=== PATIENT | female | born 1970 | race Caucasian/White ===

== ENCOUNTER 2022-09-29 09:38 | Outpatient (CLI) | payer MEDICARE | END 2022-09-29 09:39 | disposition home or self-care (01) | LOC: MADRAD 09:38 | PROVIDERS: ATTEND Internal Medicine | DX: J44.9 Chronic obstructive pulmonary disease, unspecified (principal); J96.11 Chronic respiratory failure with hypoxia; I26.99 Other pulmonary embolism without acute cor pulmonale; F17.228 Nicotine dependence, chewing tobacco, with other nicotine-induced disorders; I51.7 Cardiomegaly; I27.20 Pulmonary hypertension, unspecified | CPT/HCPCS: 71046 ==

== ENCOUNTER 2022-12-12 23:50 | Emergency (ER) | payer MEDICARE ==
[~2022-12-12 23:50] MED LIST: EPINEPHrine 1 MG/10 ML Abboject SYRINGE ONE; Iopamidol 370 76% 200 ML VIAL ONE; Sodium Bicarb 50 MEQ/50 ML Abboject 8.4% SYRINGE ONE; Sodium Chloride 0.9% 500 ML BAG ONE
[2022-12-13] MEDS ORDERED: Magnesium 2 GM/50 ML BAG (IN WATER) ONE (00:18)
[2022-12-13 00:24] LABS: #Basophils 0.1 thou/uL (0.0-0.2); #Monocytes 1.3 thou/uL (0.11-0.59); #Neutrophils 10.5 thou/uL (1.40-6.50); %Basophils 0.5 % (0.0-1.0); %Eosinophils 0.1 % (0.0-10.0); %Monocytes 8.1 % (0.0-10.0); %Neutrophils 66.3 % (42.0-75.0); Hemoglobin 15.3 g/dL (12.0-16.0); Mean Corpuscular HGB CONC 31.9 g/dL (32.0-36.0); Mean Corpuscular Hemoglobin 28.7 pg (27.0-31.0); Mean Corpuscular Volume 90.1 fl (78.0-98.0); Platelet Count 181 10x3/uL (130-400); RBC Distribution Width 13.6 % (11.5-14.5); Red Blood Cell (RBC) Count 5.32 mill/uL (4.20-5.40); White Blood Cell (WBC) Count 15.8 10x3/uL (4.8-10.8)
[2022-12-13 00:36] LABS: Base Excess-Venous -1.7 mmol/L (-2.0 to 3.0); Bicarbonate (HCO3v) 22.5 mmol/L (22.0-28.0); Chloride 105 mmol/L (98-107); Hemoglobin - Calc 15.7 g/dL (12.0-16.0); Potassium 4.6 mmol/L (3.5-5.1); Sodium 139 mmol/L (138-145); T. Carbon Dioxide 23.6 mmol/L (22.0-28.0); vO2 Saturation-calc 97.9 % (60.0-85.0)
[2022-12-13] MEDS ORDERED: Cefepime 2 GM VIAL ONE (01:11)
[2022-12-13] MEDS ORDERED: Vancomycin 1 GM VIAL ONE (01:11)
[2022-12-13] MEDS ORDERED: Albuterol 2.5 MG/0.5 ML NEB ONE (01:18)
[2022-12-13] MEDS ORDERED: Rocuronium Bromide 10 MG/ML (10ML VIAL) ONE (01:20)
[2022-12-13] MEDS ORDERED: Norepinephrine 4 MG/4 ML VIAL ONE (01:27)
[2022-12-13 01:34] LABS: ALT (SGPT) 401 U/L (8-55); AST (SGOT) 342 U/L (5-34); Albumin 3.5 g/dL (3.5-5.0); Alkaline Phosphatase 139 U/L (40-110); Anion Gap 19 mmol/L (10-20); BUN (Urea Nitrogen) 30 mg/dL (9.8-20.1); Bilirubin, Total 0.6 mg/dL (0.2-1.2); Calc. Creatinine Clearance 0 mL/min (70-130); Calcium 9.2 mg/dL (7.8-10.44); Carbon Dioxide 19 mmol/L (22-29); Chloride 106 mmol/L (98-107); Estimated GFR 29; Globulin 3.6 g/dL (2.4-3.5); Glucose 124 mg/dL (70-105); Magnesium 2.2 mg/dL (1.6-2.6); Potassium 4.7 mmol/L (3.5-5.1); Protein, Total 7.1 g/dL (6.0-8.3); Sodium 139 mmol/L (136-145)
[2022-12-13] MEDS ORDERED: Ipratropium/Albuterol 3 ML NEB ONE ×2 (01:42→03:24)
[2022-12-13 01:56] LABS: CKMB 1.7 ng/mL (0-6.6)
[2022-12-13] MEDS ORDERED: Fentanyl 100 MCG/2 ML VIAL ONE (03:24)
[2022-12-13 03:57] LABS: Base Excess-Venous -11.3 mmol/L (-2.0 to 3.0); Bicarbonate (HCO3v) 15.6 mmol/L (22.0-28.0); CO2 Tension (PvCO2) 37.7 mmHg (42.0-51.0); Calcium, Ionized 0.84 mmol/L (1.15-1.33); Chloride 101 mmol/L (98-107); Hemoglobin - Calc 18.3 g/dL (12.0-16.0); Potassium 4.8 mmol/L (3.5-5.1); Sodium 128 mmol/L (138-145); T. Carbon Dioxide 16.7 mmol/L (22.0-28.0); vO2 Saturation-calc 78.9 % (60.0-85.0)
[2022-12-13] MEDS ORDERED: Tenecteplase 50 MG ONE (04:00)
[2022-12-13] MEDS ORDERED: Heparin 25,000 units/D5W 0 ML ONE (04:04)
[2022-12-13] MEDS ORDERED: Heparin 10,000 UNITS/ 10 ML VIAL ONE (04:04)
[2022-12-13] MEDS ORDERED: ALTEPLASE 50 MG/50 ML VIAL ONE (04:04)
[2022-12-13] MEDS ORDERED: EPINEPHrine 1 MG/10 ML Abboject SYRINGE ONE ×3 (04:24→04:30)
== END 2022-12-13 08:07 | disposition expired ==
LOC: MADERS 23:50
DX: A41.9 Sepsis, unspecified organism (principal); R65.20 Severe sepsis without septic shock; J44.1 Chronic obstructive pulmonary disease with (acute) exacerbation; I26.99 Other pulmonary embolism without acute cor pulmonale; I51.9 Heart disease, unspecified; J18.9 Pneumonia, unspecified organism; E66.9 Obesity, unspecified; F17.210 Nicotine dependence, cigarettes, uncomplicated; Z79.899 Other long term (current) drug therapy
CPT/HCPCS: 31500; 51702; 71045; 71275; 80053; 82330; 82435; 82553; 82803; 83605; 83690; 83735; 83880; 84132; 84295; 84484; 85014 ×2; 85025; 87040; 92950; 93005; 96365; 96367; 96375; 99291; 99292; J2997; J0171; J0692; J1644; J3010; J3101; J3370; J3475; J7030; J7070; J7611; J7620